=== PATIENT | female | born 2005 | race Hispanic/Latino ===

== ENCOUNTER 2024-11-02 22:07 | Emergency (ER) | payer OTHER, SELFPAY ==
[2024-11-02 22:12] VITALS: BP 117/91
[2024-11-02] MEDS: NSS 1000 IV (22:32)
[2024-11-02] MEDS: TORADOL 30 MG IV (22:34)
[2024-11-02 22:42] LABS: Hematocrit 36.2 % (37.0-47.0); Hemoglobin 12.1 g/dL (12.0-16.0); Mean Corp Hgb Conc. 33.4 g/dL (33.0-37.0); Mean Corpuscular Volume 86.8 fL (81.0-99.0); Nucleated Red Blood Cells % 0 %; Platelet Count 260 10^3/uL (130-400); Red Cell Dist. Width 12.5 % (11.5-14.5)
[2024-11-02 23:02] LABS: HCG, Serum Qualitative Screen Negative
[2024-11-02 23:06] LABS: ALT (SGPT) 18 U/L (0-35); AST (SGOT) 22 U/L (14-36); Albumin 4.8 g/dl (3.5-5.0); Alkaline Phosphatase 54 U/L (38-126); Blood Urea Nitrogen 12 mg/dl (7-17); Calcium 10.0 mg/dl (8.4-10.2); Carbon Dioxide 24 mmol/L (22-30); Chloride 105 mmol/L (98-107); Glucose 103 mg/dl (70-99); Lipase 57 U/L (23-300); Potassium 3.7 mmol/L (3.5-5.1); Sodium 138 mmol/L (135-145); Total Protein 8.0 g/dl (6.3-8.2); eGFR > 60.00
--- NOTE | 2024-11-02 23:15 | ED.GENMED ---
History of Present Illness
General
Chief Complaint: Abdominal Pain
Source: patient and family (Brother and mother at bedside. Brother is assisting with interpreting but patient speaks Turkmen and understands Turkmen quite well.)
Exam Limitations: none
Time Seen by Provider: 11/02/24 22:20
Nursing documentation reviewed up to this point in time: agreed with
History of Present Illness
History of Present Illness:
The patient is a 19-year-old female who presents with acute onset left-sided abdominal pain. She reports that the pain suddenly began around 4:30 PM today and has been constant in nature. She has never experienced similar pain before and rates it as
severe. The pain is described as crampy, coming and going in waves. There are no associated symptoms of nausea, vomiting, fever, urinary symptoms, or diarrhea. Movement does not aggravate the pain, and she does not feel gassy. She denies any recent
illness or other significant health issues.
Last menstrual period began 3 days ago, normal and on time.
She takes no medicines on a daily basis. She has not taken anything for discomfort.
Past History
Past History
ED Past Medical History: None
ED Past Surgical History: None
Social History
Tobacco: Non-smoker
Alcohol: None
Drug: None
Personal: Single
Living: with family
Family History
Family History: Other (Noncontributory)
Phy Exam
Physical Exam
Physical Exam:
GENERAL: 19-year-old female appears her stated age, awake and alert, appears in mild to moderate distress related to pain. Brother and mother are accompanying.
EYE: anicteric
NECK: Supple, nontender, no meningismus, no significant adenopathy.
ENT: oral mucosa is moist. No rhinorrhea.
CARDIAC: Regular rate and rhythm. no murmur.
LUNGS: Clear breath sounds bilaterally, no acute respiratory distress, no wheezes/rales/rhonchi
ABDOMEN: Rotund, soft, nondistended, questionable mild tenderness to palpation left lower quadrant without rebound or guarding nor rigidity, questionable mild left CVA tenderness with percussion. Normoactive BS.
NEUROLOGICAL: Alert and oriented x3, no focal neuro deficits. Gait is florentino and steady.
SKIN: Warm and dry, normal color, skin intact. No rash.
MUSCULOSKELETAL: No C/C/E. peripheral pulses are full and equal b/l. No palpable tenderness.
PSYCH: Normal and appropriate interaction.
Course
Orders/Labs/Results
Orders:
Orders
11/02/24 22:25
Test Result ONCE
11/02/24 22:28
Urinalysis Reflex To Culture Urgent
Date Specimen was Collected: 11/03/24
Time Specimen was Collected: :26
0.9% Sodium Chloride 1000 ml [Nss] 1,000 ml IV BOLUS
Ketorolac [Toradol] 30 mg IV NOW STA
11/02/24 22:29
Complete Blood Count/With Diff Urgent
Comprehensive Metabolic Panel Urgent
HCG, Serum Qualitative Screen Urgent
Lipase Urgent
11/02/24 22:30
Lactic Acid Urgent
11/02/24 23:20
US Pelvis W Transvag Combined Urgent
Comment:
Reason For Exam: acute severe LLQ pain
11/02/24 23:21
Renal & Bladder US [US Renal With Bladder] Urgent
Comment:
Reason For Exam: SEVERE LLQ pain rad to LUQ
11/03/24 01:03
CT Abd/pelvis W Iv Cont Urgent
Comment:
Reason For Exam: acute severe L sided abd pain
11/03/24 01:48
Urine Microscopic Reflex Cult Urgent
Urine Culture Urgent
CRIS Source: U
Specimen Description:
Date Specimen was Collected: 11/03/24
Time Specimen was Collected: :26
Abnormal Lab Results
11/02/24 11/03/24
22:29 01:48
WBC 17.8 H 10^3/uL
(4.8-10.8)
RBC 4.17 L 10^6/uL
(4.20-5.40)
Hct 36.2 L %
(37.0-47.0)
Abs Immat Gran (auto) 0.1 H 10^3/uL
(0-0.05)
Absolute Neuts (auto) 13.7 H 10^3/uL
(1.4-6.5)
Absolute Monos (auto) 1.3 H 10^3/uL
(0.1-0.6)
Neutrophils % 77.0 H %
(42.2-75.2)
Lymphocytes % 14.6 L %
(20.5-51.1)
Glucose 103 H mg/dl
(70-99)
Ur Occult Blood Reflex 4+ A
(Negative)
Leukocyte Esterase Rfl 3+ A
(Negative)
Urine RBC 26-30 A /HPF
(0-2)
Urine WBC (Reflex) 30-40 A /HPF
(0-5)
Urine Bacteria (Reflex) Many A
(Negative)
Urine Albumin (Reflex) 3+ A
(Neg - Trace)
11/02/24 22:29
11/02/24 22:29
Vital Signs
Initial and Last Documented VS:
Initial Vital Signs
Temp
98.1 F
11/02/24 22:10
Last Documented Vital Signs
Temp Pulse Resp BP Pulse Ox
98.1 F 72 16 138/95 99
11/02/24 22:10 11/03/24 01:52 11/03/24 01:52 11/03/24 01:52 11/03/24 01:52
MDM/Problems Addressed
Differential Diagnosis Includes:
The Differential Diagnosis includes, in no particular order and is not limited to:
1. Ovarian cyst rupture
2. Ovarian torsion
3. Nephrolithiasis (kidney stones)
4. Appendicitis-much less likely, no RLQ tenderness
5. Ectopic
6. Diverticulitis
7. Gastroenteritis
8. Pelvic inflammatory disease
9. Urinary tract infection
10. Bowel obstruction
MDM/Problems Addressed:
Acute left-sided abdominal pain appears somewhat colicky in nature. Questionable reproducible tenderness left lower quadrant.
Differential as above.
1. Initiate blood work to investigate possible causes of the abdominal pain.
2. Start intravenous fluids.
3. Administer pain management medication.
4. Consider imaging studies based on initial laboratory results to rule out potential issues such as ovarian cyst rupture, kidney stones, or bowel obstruction.
5. Possible additional testing for lactic acid levels.
Chronic conditions affecting care:
No history of similar episodes in the past.
No known history of ovarian cysts nor kidney stones, no history of STI, no previous abdominal surgeries.
*Radiology
Radiology exam reviewed: radiology read reviewed
*Pulse Oximetry
SaO2: 98
Oxygen Mode of Delivery: Room air
Patient hypoxic: no
*Critical Care Note
Total Time (30-74mins, 75-104mins- exclusive of procedures): Not Applicable
Update Note
Update Note:
02:30
Patient remains pain-free and comfortable after 1 IV dose of Toradol.
Pelvic ultrasound is unremarkable. Renal ultrasound reportedly unremarkable as well however upon my review I question very mild hydronephrosis/fullness of renal pelvis on the left.
CT obtained which shows an obstructing 3 mm calculus in the left UVJ causing mild hydroureteronephrosis. There is also note of delayed nephrogram and mild inflammatory change.
She remains afebrile. She has had no UTI symptoms but urinalysis is a contaminated specimen with greater than 30 squamous epithelial cells. Showing many bacteria, 30-40 white cells, negative nitrite. It is reassuring that she has had no UTI
symptoms but disappointing that this is a contaminated specimen. As such we will add a short course of antibiotic for coverage of potential UTI. Will add a short course of oral Toradol for as needed pain and Zofran for as needed nausea.
Discussed importance of staying well-hydrated on a daily basis.
Will refer to urology for as needed follow-up.
Return precautions discussed.
ED Attending Note
-
Portions of this chart may have been created with voice recognition software.� Occasional wrong word or��sound alike� substitutions may have occurred due to the inherent limitations of voice recognition software.
Discharge Plan
Departure
Patient Disposition: Home (Routine Discharge)
Date of Disposition: 11/03/24
Time of Disposition: 02:36
Patient with high blood pressure during this ER visit?: No
Condition: Good
Discharge Problem:
Calculus of distal left ureter
Instructions: Kidney Stones (DC), Kidney stone diet
Prescriptions:
New
ketorolac 10 mg tablet
10 mg PO QID PRN (Reason: pain) Qty: 20 0RF
ondansetron 4 mg tablet,disintegrating
4 mg PO QID PRN (Reason: nausea and vomiting) Qty: 20 0RF
amoxicillin-pot clavulanate 875-125 mg tablet
1 tab PO BID Qty: 10 0RF
Referrals:
Ethan Meza MD [Family Provider, Family Practice] - Call in 1-3 days for appt
Kev Castorena MD [Active, Urology] - As needed
Interventions
Interventions:
*Risk Screen - Suicide Last Done: 11/02/24 22:11
*General Assessment Last Done: 11/02/24 22:11
*Neglect/Abuse Screening Last Done: 11/02/24 22:11
*ED- Fall Risk Assessment Last Done: 11/03/24 01:53
*ED COVID-19 Vaccine History Last Done: 11/03/24 01:54
BT-Quoxhl-Lithiwxffa Assessment Last Done: 11/02/24 22:38
Discharge Date and Time
Print Language: [id number]
[2024-11-03 01:52] VITALS: BP 138/95
[2024-11-03 01:53] LABS: Urine Character Bloody (Clear)
[2024-11-03 02:19] LABS: Urine Squamous Cell >30 /LPF (Few)
[2024-11-03 02:20] LABS: Urine Red Blood Cell 26-30 /HPF (0-2)
[2024-11-03 02:21] LABS: Urine White Cell 30-40 /HPF (0-5)
[2024-11-03 02:49] VITALS: BP 138/95
== END 2024-11-03 02:51 | disposition home or self-care (01) ==
LOC: EMR 22:07
PROVIDERS: EMERGENCY PHYSICIAN Emergency Medicine; FAMILY PHYSICIAN Family Medicine
DX: N13.2 Hydronephrosis with renal and ureteral calculous obstruction (principal); R10.9 Unspecified abdominal pain
CPT/HCPCS: 99284; 96374; 96361; 74177; 76770; 76830; 76856; 80053; 81003; 81015; 83605; 83690; 84703; 85025; 87086; Q9967